=== PATIENT | female | born 1970 | race Caucasian/White ===

== ENCOUNTER 2017-01-01 00:32 | Inpatient (IN) | payer OTHER ==
[~2017-01-01] VITALS: Ht 157.5 cm; Wt 78.8 kg
[~2017-01-01 00:32] MED LIST: BAC30OI TOP
[2017-01-01 01:41] VITALS: Ht 157.5 cm; Wt 78.8 kg
[2017-01-01] MEDS ORDERED: ONDANSETRON 4 MG INJ IV PRN (02:00)
[2017-01-01] MEDS ORDERED: ACETAMINOPHEN 325 MG TAB PO PRN (02:00)
[2017-01-01] MEDS ORDERED: morphine 2 MG INJ IV PRN (02:00)
[2017-01-01 02:06] VITALS: BP 153/89; PULSE 81; RESP 20
[2017-01-01 02:40] LABS: HEMATOCRIT 26.2 % (37.0-47.0); HEMOGLOBIN 7.9 g/dl (12.0-16.0)
[2017-01-01 02:50] LABS: IRON 12 ug/dl (35-150)
[2017-01-01 02:59] LABS: TOTAL IRON BINDING CAPACITY 369 ug/dl (241-421)
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
[2017-01-01 08:14] VITALS: BP 128/82; RESP 16
[2017-01-01] MEDS ORDERED: SOD FERRIC GLUC COMPLX 125 MG in SOD CHLORIDE 0.9% 100 ML IVPB ONE (10:30)
--- NOTE | 2017-01-01 10:49 | RADRPT ---
PROCEDURE: US Pelvis. CLINICAL INDICATION: Vaginal bleeding TECHNIQUE: Multiple sonographic images of the pelvis were obtained utilizing a transabdominal and endovaginal technique. The images were reviewed on a PACS workstation. COMPARISON: None. FINDINGS: The uterus is visualized and measures 9.8 x 6.3 x 7.1 cm. The endometrial echo complex measures 4 mm thickness. 2.7 cm subserosal fibroid is identified in the posterior body of the uterus. A 6.5 cm i ntramural uterine fibroid is identified in the uterus. The right ovary is not well visualized. The left ovary measures 3.6 x 1.9 x 2.2 cm. 1.9 cm simple cyst is identified on the left ovary. The left ovary demonstrates normal vascularity.. No adnexal masses or pelvic free fluid are noted. IMPRESSION: Multifibroid uterus. 1.9 cm simple cyst on the left ovary. This likely reflects a prominent follicle or physiologic cyst . Right ovary not well visualized. If characterization of this structure is needed repeat exam or CT/M RI is recommended. If further characterization of the organs of the pelvis is needed MRI should be considered. RPTAT: AA .Andre Lindsay MD, Date Time Electronically viewed and signed by .Andre Lindsay MD, MD on 01/01/2017 10:49 .P/
--- NOTE | 2017-01-01 14:52 | CONS ---
Date/Time of Note Date/Time of Note DATE: 01/01/17 TIME: 14:32 Assessment/Plan Assessment/Plan Chief Complaint/Hosp Course 1) Abnormal Uterine Bleeding 2) Likely IUD Expulsion 3) Vaginal Bleeding Problems: Additional Assessment/Plan 1) Abnormal Uterine Bleeding -Bleeding may be secondary to 6.5cm intramural fibroid for which she may need surgical intervention given recurrent episodes of symptomatic anemia requiring transfusion. Pt will also need an endometrial biospy to assess for endometrial hyperplasia or CA given her age and long hx of AUB. In the meantime, discussed with pt hormonal options, other than the LNG IUD, for managing bleeding including combined oral contraceptives and other forms of progestin contraception including Depo Provera, progestin only pill and progestin implant. Pt is a poor candidate for combined hormonal methods secondary to active tobacco use and her age. Would recommend either progestin only pill or more preferably hormonal implant given pt difficulty with compliance- remembering to take and dislike for pills- and concern for weight gain with DMPA. Pt will need to establish an outpatient GREASE RACK WORKER to further discuss options and for further workup and management of fibroids and bleeding. 2) Likely IUD expulsion- Called Radiology to confirm absence of IUD and was told that an IUD was not visualized. Recommended pt use other form of contraception given the high likelihood that the IUD has been expelled. Urine test ordered. 3) Vaginal Discharge- Vaginal culture collected and sent. STI panel ordered and results will be followed up by GREASE RACK WORKER. Plan d/w pt. Questions answered to her satisfaction. Thank you for this consult. Consultation Date/Type/Reason Admit Date/Time Jan 01, 2017 at 01:25 Date of Consultation: Jan 01, 2017 Type of Consultation: Gynecology Reason for Consultation IUD and vaginal pus after menses Referring Provider: ANSON ROSALES Hx of Present Illness Pt is a 46yo with a reported long history of heavy menses since 2nd delivery in 1995, now admitted for symptomatic anemia s/p menses on 12/22/16. Pt states she has had two Mirena IUDs over the years for contraception and for management of heavy bleeding which have not decreased menstrual flow much. Pt reports heavy bleeding with clots. Denies dysmenorrhea although after this last menses she c/o cramping in lower abdomen which has now resolved although c/o a soreness in lower abdomen now. Pt also c/o seeing a pus -like discharge after menses. Denies irregular bleeding or vaginal itching. Reports a foul odor with the discharge. Pt states her IUD was inserted in 2009 and [place] and had insurance issues and thus has not been able to have it removed. She was checking for the strings regularly up until about a year ago and had always felt them during her vaginal checks. PMHx: HTN, not on meds; Anemia s/p transfusions 4x in last 12 years PSHx: Multiple non GREASE RACK WORKER/Abdominal surgeries OB Hx: x5, SAB x3, TAB x1 GREASE RACK WORKER Hx: Single, last sexually active 2mths ago with global transportation manager male partner x2 years. Recently found out he was unfaithful. Denies condom use. Remote hx of CT in her 20s. Otherwise denies STI hx. Soc Hx: 20+ yr Meth use, last use 1yr ago. Denies current illicit drug or EtOH use. Smokes 1-2 cigs/week (although per Admission H&P, pt reported 7cigs/day). Past Medical History Medical History: hypertension, other (anemia) Past Surgical History Past Surgical Hx: other (as per above) Family History Significant Family History: no pertinent family hx Social History Alcohol Use: none Smoking Status: Current every day smoker Drug Use: none Other Social History as per above Exam/Review of Systems Vital Signs Vitals Vital Signs Date Time Temp Pulse Resp B/P Pulse Ox O2 Delivery O2 Flow Rate FiO2 01/01/17 08:14 98.1 80 16 128/82 97 01/01/17 02:06 Room Air Exam Constitutional: alert, oriented, No distress Respiratory: clear to auscultation Cardiovascular: regular rate and rhythm Gastrointestinal: bowel sounds, soft, tender (min TTP lower quadrants diffusely , distractable), No distended, No firm, No mass, No rebound or guarding Genitourinary - Female: nl adnexae, nl external genitalia, other (on SSE, parous cervix, no strings visualized per cervical os. Approx 1tbsp of mucous with yellow tinge. No malodor), uterus (nontender), No CMT Results Result Diagram: 01/01/17 0220 Results 24 hrs Laboratory Tests Test 01/01/17 02:20 Ferritin 4.2 L Hematocrit 26.2 L Hemoglobin 7.9 L Iron Level 12 L Percent Iron Saturation 3 L Total Iron Binding Capacity 369 Medications Medications Current Medications Acetaminophen (Tylenol Tab) 650 mg Q6H PRN PO PAIN AND OR ELEVATED TEMP; Start 01/01/17 at 02:00 Morphine Sulfate (morphine) 2 mg Q4H PRN IV PAIN; Start 01/01/17 at 02:00 Ondansetron HCl (Zofran Inj) 4 mg Q6H PRN IV NAUSEA AND/OR VOMITING; Start at 02:00 JORDAN MORRISON MD Jan 01, 2017 14:42
[2017-01-01 18:43] LABS: HAAIG REFLEX REFLEX FILED
[2017-01-01 18:48] LABS: HEMATOCRIT 30.9 % (37.0-47.0); HEMOGLOBIN 9.6 g/dl (12.0-16.0); MEAN CORPUSCULAR HEMOGLOBIN 20.7 pg (29.0-33.0); MEAN CORPUSCULAR HGB CONC 31.2 g/dl (32.0-37.0); MEAN CORPUSCULAR VOLUME 66.2 fl (82.0-101.0); MEAN PLATELET VOLUME 8.2 fl (7.4-10.4); PLATELET COUNT 415 10^3/UL (140-440); RED BLOOD COUNT 4.66 10^6/ul (4.20-5.40); RED CELL DISTRIBUTION WIDTH 24.2 % (11.5-14.5); UNCORRECTED WBC 5.2 10^3/ul (4.8-10.8); WHITE BLOOD COUNT 5.2 10^3/ul (4.8-10.8)
[2017-01-01 19:04] LABS: CALCIUM 8.6 mg/dl (8.4-10.2); CREATININE 0.68 mg/dl (0.44-1.00)
[2017-01-01 19:05] LABS: CONDITION 1; LH ANALYZER COMMENTS 1
[2017-01-01 19:44] VITALS: BP 144/85; PULSE 84; RESP 20
[2017-01-01 20:11] LABS: HEPATITIS B CORE ANTIBODY NEGATIVE (NEGATIVE)
[2017-01-01 20:29] VITALS: BP 122/78; RESP 16
[2017-01-01 21:53] LABS: EOSINOPHILS # 0.1 10^3/ul (0.0-0.5); LYMPHOCYTES # 1.3 10^3/ul (0.8-2.9); MONOCYTE # 0.3 10^3/ul (0.3-0.9); NEUTROPHIL # 3.5 10^3/ul (1.6-7.5)
[2017-01-01 21:54] LABS: OVALOCYTES 1+
[2017-01-02 08:00] VITALS: BP 136/75; PULSE 78; RESP 20
--- NOTE | 2017-01-02 14:52 | QN ---
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 heavy periods, uterine fibroids and severe anemia, now s/o 2 units blood transfused and feeling much better. Pt does not have any bleeding currently. A report of a Mirena IUD in place could not be verifies as the string is not seen at the cervix and on pelvic US it could not be seen so the presumption is that it was expelled. Pt states her periods never really got prop cutter at any time with the IUD. Hgb today is 9.6. RPR, HIV and Hepatitis B and C are negative (done per pt request). Vaginal cx showing Group B strep done as pt c/o a vaginal d/c. Pt ready for discharge home. Rx given for p.o. Keflex 500 QID x 7 days along with a Rx for Diflucan 150 mg p.o. x 1. Reviewed at length the different options pt has to prevent a recurrence of the heavy bleeding and strongly recommend she see her WRAPPER LAYER AND EXAMINER SOFT WORK to create a plan of care. Recommend DepoProvera or OCP's for now and to consider a myomectomy or hysterectomy if the hormonal controls don't work. Pt indicated understanding. KEVON MENA MD Jan 02, 2017 14:52
--- NOTE | 2017-01-02 16:16 | PDOCDIS ---
Discharge Instructions CONDITION Patient Condition: Good HOME CARE INSTRUCTIONS: Diet Instructions: Regular ACTIVITY: Activity Restrictions: No Restrictions FOLLOW UP/APPOINTMENTS Appointments F/U WITH YOUR PCP AND YOUR WATCH MANUFACTURING SUPERVISOR IN 1-2 WEEKS ANSON ROSALES Jan 02, 2017 16:16
--- NOTE | 2017-01-03 07:25 | DS ---
DATE OF ADMISSION: 01/01/2017 DATE OF DISCHARGE: 01/02/2017 DISCHARGE DIAGNOSES: 1. Anemia secondary to menorrhagia status post 2 units of packed red blood cells. Hemoglobin now s table. The patient is having no active bleeding at this time. She has been evaluated by gynecology . Recommendation is to follow up with computer programming manager as outpatient. The patient does have fibroids n oted on ultrasound. 2. History of substance abuse. The patient has reported history of meth abuse. Recommended to sto p. 3. History of hypertension. BP now stable off medications. HOSPITAL COURSE: The patient is a 46-year-old female with history of hypertension, off medication f or 8 months. The patient has a history of meth abuse and heavy menses with multiple blood transfusi ons in the past. She reportedly had an IUD placed in 2009 that was supposed to be removed by now an d states that he never got it removed. The patient's hemoglobin is 7.9. She was given 2 units of p acked red blood cells during this hospitalization. She was seen by STORE RECEIVER and did have a pelvic ultras ound. The pelvic ultrasound showed a multifibroid uterus, a 1.9 cm stable cyst on left ovary. The patient had no IUD noted, and it appeared that IUD had expelled on its own. The patient's RPR, HIV, and hepatitis B and C were negative. Vaginal cultures showed group B strep. Gynecology advised th at she follows up with STORE RECEIVER as an outpatient to create a plan of care. Recommendation was for Depo-P rovera or OCPs for now and to consider a myomectomy or hysterectomy if hormonal control did not work . The patient was cleared for discharge to home by STORE RECEIVER. She was having no active bleeding. The da y of discharge, the patient's vitals, labs, and physical exam were stable. No acute complaints. Al l questions were answered. CONDITION ON DISCHARGE: Stable. DISPOSITION: To home. MEDICATIONS: The patient was given a prescription for Keflex 500 mg p.o. q.i.d. for 7 days and Difl ucan 150 mg p.o. x1. This was given by computer programming manager. The patient was to continue her home bacitrac in. FOLLOWUP: The patient is to follow up with PCP and computer programming manager in 1 to 2 weeks. Greater than 30 minutes was spent coordinating discharge of patient. Dictated By: ANSON HOUGH/NTS Conf#: [id number] DID#: [id number]
== END 2017-01-02 18:35 | disposition home or self-care (01) | DRG 812 ==
LOC: MS2 01:25
PROVIDERS: ADMIT Internal Medicine; ATTEND Internal Medicine
PROC: 30233N1 Transfusion of Nonautologous Red Blood Cells into Peripheral Vein, Percutaneous Approach (ICD-10-PCS; principal; 2017-01-01)
DX: D64.9 Anemia, unspecified (principal); I10 Essential (primary) hypertension; N92.0 Excessive and frequent menstruation with regular cycle; D25.9 Leiomyoma of uterus, unspecified
CPT/HCPCS: 36430; 76830; 76856; 80048; 82728; 83540; 84703; 85014; 85018; 85025; 86592; 86703; 86704; 86709; 86803; 86850; 86900; 86901; 86920; 87081; 87340; 87591; J2916; P9016

== ENCOUNTER 2018-07-06 13:02 | Emergency (ER) | END 2018-07-06 14:25 | disposition home or self-care (01) ==

== ENCOUNTER 2018-07-15 19:24 | Inpatient (IN) | END 2018-07-18 13:30 | disposition home or self-care (01) | DRG 743 ==

== ENCOUNTER 2018-08-12 11:31 | Emergency (ER) | END 2018-08-12 12:45 | disposition home or self-care (01) ==

== ENCOUNTER 2018-09-12 19:35 | Emergency (ER) | END 2018-09-13 00:14 | disposition left against medical advice (07) ==

== ENCOUNTER 2019-03-27 20:41 | Emergency (ER) | payer OTHER ==
[~2019-03-27] VITALS: Ht 157.5 cm; Wt 78.3 kg
[~2019-03-27 20:41] MED LIST changes: -BAC30OI TOP; +FER325 PO; +HYDR-3601 PO; +IBUP-1542 PO
[2019-03-27 21:19] VITALS: Ht 157.5 cm; Wt 78.3 kg
[2019-03-27] MEDS ORDERED: ONDANSETRON 4 MG INJ IV STA (23:39)
[2019-03-27] MEDS ORDERED: SOD CHLORIDE 0.9% 1,000 ML IV STA (23:39)
[2019-03-27] MEDS ORDERED: morphine 4 MG/ML VIAL IV STA (23:39)
[2019-03-28] MEDS ORDERED: METR500T PO (01:54)
[2019-03-28] MEDS ORDERED: TRAM50TA2 PO (01:54)
[2019-03-28] MEDS ORDERED: CIPR500T4 PO (01:54)
--- NOTE | 2019-03-28 01:55 | ERD ---
ER Documentation Chief Complaint Chief Complaint abdominal pain x 4 days HPI Is a 40-year-old female with abdominal pain for the past 4 days. She is also mildly constipated. Denies fevers chills. Pain is in lower quadrants. No re bound no guarding. Denies any vomiting but has had mild nausea. Denies any other current complaints. ROS All systems reviewed and are negative except as per history of present illness. Medications Home Meds Active Scripts Tramadol HCl (Tramadol HCl) 50 Mg Tablet, 50 MG PO Q4 PRN for PAIN, #20 TAB Prov:MAR GATES S. 03/28/19 Metronidazole* (Flagyl*) 500 Mg Tablet, 500 MG PO TID for 5 Days, TAB Prov:MAR GATES S. 03/28/19 Ciprofloxacin Hcl* (Ciprofloxacin Hcl*) 500 Mg Tablet, 500 MG PO BID for 5 Days, TAB Prov:MAR GATES. 03/28/19 Ibuprofen* (Motrin*) 600 Mg Tab, 600 MG PO Q6, #20 TAB Prov:DEEPAK CALLEJAS MD 08/12/18 Hydrocodone Bit-Acetaminophen (Hydrocodone Bit-APAP) 5-325MG Tablet, 1 TAB PO Q4H PRN for pain for 7 Days, #20 TAB Prov:NOAH CABRERA MD 07/18/18 Reported Medications Ferrous Sulfate* (Ferrous Sulfate*) 325 Mg Tabec, 325 MG PO DAILY, TAB 07/15/18 Allergies Allergies: Coded Allergies: No Known Allergy (Verified , 07/15/18) PMhx/Soc History of Surgery: Yes (Right leg Sx) Anesthesia Reaction: No Hx Neurological Disorder: No Hx Respiratory Disorders: No Hx Cardiac Disorders: No (HTN) Hx Psychiatric Problems: No Hx Miscellaneous Medical Probl: No Hx Alcohol Use: No Hx Substance Use: Yes (crystal meth four years ago) Hx Tobacco Use: No Smoking Status: Never smoker Physical Exam Vitals Vital Signs Date Temp Pulse Resp B/P (MAP) Pulse Ox O2 O2 Flow FiO2 Time Delivery Rate 03/27/19 99.7 102 20 139/98 98 21:19 (112) Physical Exam Const: No acute distress Head: Atraumatic Eyes: Normal Conjunctiva ENT: Normal External Ears, Nose and Mouth. Neck: Full range of motion. No meningismus. Resp: Clear to auscultation bilaterally Cardio: Regular rate and rhythm, no murmurs Abd: Soft, non tender, non distended. Normal bowel sounds Skin: No petechiae or rashes Back: No midline or flank tenderness Ext: No cyanosis, or edema Neur: Awake and alert Psych: Normal Mood and Affect Result Diagram: 03/28/19 0010 03/28/19 001 Results 24 hrs Laboratory Tests Test 03/28/19 00:10 03/28/19 00:23 White Blood Count 4.9 10^3/ul Red Blood Count 5.01 10^6/ul Hemoglobin 14.1 g/dl Hematocrit 43.8 % Mean Corpuscular Volume 87.4 fl Mean Corpuscular Hemoglobin 28.1 pg Mean Corpuscular Hemoglobin Concent 32.2 g/dl Red Cell Distribution Width 15.3 % Platelet Count 318 10^3/UL Mean Platelet Volume 11.1 fl Immature Granulocytes % 0.200 % Neutrophils % 54.9 % Lymphocytes % 35.9 % Monocytes % 6.8 % Eosinophils % 2.0 % Basophils % 0.2 % Nucleated Red Blood Cells % 0.0 /100WBC Immature Granulocytes # 0.010 10^3/ul Neutrophils # 2.7 10^3/ul Lymphocytes # 1.8 10^3/ul Monocytes # 0.3 10^3/ul Eosinophils # 0.1 10^3/ul Basophils # 0.0 10^3/ul Nucleated Red Blood Cells # 0.0 10^3/ul Urine Color YELLOW Urine Clarity SLIGHTLY CLOUDY Urine pH 5.0 Urine Specific [place] 1.024 Urine Ketones NEGATIVE mg/dL Urine Nitrite NEGATIVE mg/dL Urine Bilirubin NEGATIVE mg/dL Urine Urobilinogen 1+ mg/dL Urine Leukocyte Esterase TRACE Sima/ul Urine Microscopic RBC 2 /HPF Urine Microscopic WBC 3 /HPF Urine Squamous Epithelial Cells FEW /HPF Urine Bacteria FEW /HPF Urine Mucus MANY /HPF Urine Hemoglobin 1+ mg/dL Urine Glucose NEGATIVE mg/dL Urine Total Protein NEGATIVE mg/dl Sodium Level 144 mmol/L Potassium Level 3.7 mmol/L Chloride Level 111 mmol/L Carbon Dioxide Level 22 mmol/L Anion Gap 11 Blood Urea Nitrogen 12 mg/dl Creatinine 0.74 mg/dl Est Glomerular Filtrat Rate mL/min > 60 mL/min Glucose Level 101 mg/dl Calcium Level 9.6 mg/dl Total Bilirubin 0.2 mg/dl Direct Bilirubin 0.00 mg/dl Indirect Bilirubin 0.2 mg/dl Aspartate Amino Transf (AST/SGOT) 24 IU/L Alanine Aminotransferase (ALT/SGPT) 18 IU/L Alkaline Phosphatase 99 IU/L Total Protein 8.0 g/dl Albumin 4.3 g/dl Globulin 3.70 g/dl Albumin/Globulin Ratio 1.16 Lipase 119 U/L POC Beta HCG, Qualitative NEGATIVE Current Medications Medications Dose Sig/Иван Start Time Status Last (Trade) Ordered Route PRN Stop Time Admin Dose Reason Admin Sodium 1,000 ml @ Q1H STAT 03/27/19 DC 03/27/19 Chloride 1,000 mls/hr IV 23:39 23:39 03/28/19 00:38 Morphine 4 mg ONCE STAT 03/27/19 DC 03/27/19 Sulfate IV 23:39 00:42 (morphine) 03/27/19 23:40 Ondansetron 4 mg ONCE STAT 03/27/19 DC 03/27/19 HCl (Zofran IV 23:39 00:42 Inj) 03/27/19 23:40 Procedures/MDM Medical decision making: Patient's gastrointestinal symptoms have stabilized while in the department. No evidence of severe dehydration, sepsis, or surgical abdomen. Extensive discussion with family and patient that occult disease cannot be ruled out. 8 hour recheck for repeat abdominal exam is planned. Patient discharged home with Cipro, Flagyl, tramadol. Advised follow-up in 8 hours. She does have some evidence of mild diverticulitis. Given this that she is concerned as outpatient antibiotic regimen. She is to return in 8 hours and for serial abdominal exams Departure Diagnosis: Primary Impression: Abdominal pain Abdominal location: unspecified location Qualified Codes: R10.9 - Unspecified abdominal pain Condition: Stable Patient Instructions: Diverticulitis MAR GATES March 28, 2019 01:55
[2019-03-28 02:26] VITALS: BP 152/78; PULSE 82; RESP 16
== END 2019-03-28 02:30 | disposition home or self-care (01) ==
LOC: E/R 20:41
DX: R10.9 Unspecified abdominal pain (principal)
CPT/HCPCS: 36415; 71045; 74176; 80053; 81001; 81025; 83690; 85025; 96374; 96375; J2270; J2405; J7030; Z7502

== ENCOUNTER 2019-06-30 12:44 | Emergency (ER) | payer OTHER ==
[~2019-06-30] VITALS: Ht 154.9 cm; Wt 81.6 kg
[~2019-06-30 12:44] MED LIST changes: +CIPR500T4 PO; +MECL12.574 PO; +METR500T PO; +TRAM50TA2 PO
[2019-06-30 12:51] VITALS: BP 164/94; PULSE 77; RESP 17; Ht 154.9 cm; Wt 81.6 kg
[2019-06-30] MEDS ORDERED: MECLIZINE 12.5 MG TAB PO ONE (14:00)
--- NOTE | 2019-06-30 16:22 | ERD ---
ER Documentation Chief Complaint Chief Complaint DIZZINESS X2 HRS, NO N, NO HEADACHE HPI This is a 48-year-old female with history of anemia and meth abuse, currently sober and in remission who presents to the ED with complaints of dizziness x 2 hours. Patient states she was sitting in class when she had sudden onset dizziness, described as a room spinning. She states the symptoms are provoked when turning her head to the right. Symptoms last for a few and then spontaneously resolved. She denies any associated nausea, vomiting, headache, chest pain, shortness of breath. No ear pain or trauma. She also reports feeling tired. No other complaints. ROS All systems reviewed and are negative except as per history of present illness. Medications Home Meds Active Scripts Meclizine Hcl* (Antivert*) 12.5 Mg Tab, 12.5 MG PO Q6H PRN for DIZZINESS, #20 TAB Prov:SANGEETHA STEVE PA-C 06/30/19 Tramadol HCl (Tramadol HCl) 50 Mg Tablet, 50 MG PO Q4 PRN for PAIN, #20 TAB Prov:MAR GATES S. 03/28/19 Metronidazole* (Flagyl*) 500 Mg Tablet, 500 MG PO TID for 5 Days, TAB Prov:MAR GATES S. 03/28/19 Ciprofloxacin Hcl* (Ciprofloxacin Hcl*) 500 Mg Tablet, 500 MG PO BID for 5 Days, TAB Prov:MAR GATES S. 03/28/19 Ibuprofen* (Motrin*) 600 Mg Tab, 600 MG PO Q6, #20 TAB Prov:DEEPAK CALLEJAS MD 08/12/18 Hydrocodone Bit-Acetaminophen (Hydrocodone Bit-APAP) 5-325MG Tablet, 1 TAB PO Q4H PRN for pain for 7 Days, #20 TAB Prov:NOAH CABRERA MD 07/18/18 Reported Medications Ferrous Sulfate* (Ferrous Sulfate*) 325 Mg Tabec, 325 MG PO DAILY, TAB 07/15/18 Allergies Allergies: Coded Allergies: No Known Allergy (Verified , 06/30/19) PMhx/Soc History of Surgery: Yes (Right leg Sx) Anesthesia Reaction: No Hx Neurological Disorder: No Hx Respiratory Disorders: No Hx Cardiac Disorders: No (HTN) Hx Psychiatric Problems: No Hx Miscellaneous Medical Probl: No Hx Alcohol Use: No Hx Substance Use: Yes (crystal meth four years ago) Hx Tobacco Use: No Smoking Status: Never smoker Physical Exam Vitals Vital Signs Date Temp Pulse Resp B/P (MAP) Pulse Ox O2 O2 Flow FiO2 Time Delivery Rate 06/30/19 99.0 77 17 164/94 98 12:51 (117) Physical Exam Const: No acute distress Head: Atraumatic Eyes: Normal Conjunctiva. EOMI. PERRL. + Fatigable horizontal nystagmus to the left. ENT: Normal External Ears, Nose and Mouth. Neck: Full range of motion. No meningismus. + Dizziness is provoked when turning head to the right. Resp: Clear to auscultation bilaterally Cardio: Regular rate and rhythm, no murmurs Abd: Soft, non tender, non distended. Normal bowel sounds Skin: No petechiae or rashes Back: No midline or flank tenderness Ext: No cyanosis, or edema Neur: Awake and alert Psych: Normal Mood and Affect Result Diagram: 06/30/19 1412 06/30/19 1412 Results 24 hrs Laboratory Tests Test 06/30/19 14:12 White Blood Count 6.3 10^3/ul Red Blood Count 4.70 10^6/ul Hemoglobin 13.7 g/dl Hematocrit 42.7 % Mean Corpuscular Volume 90.9 fl Mean Corpuscular Hemoglobin 29.1 pg Mean Corpuscular Hemoglobin Concent 32.1 g/dl Red Cell Distribution Width 14.4 % Platelet Count 282 10^3/UL Mean Platelet Volume 11.3 fl Immature Granulocytes % 0.200 % Neutrophils % 62.7 % Lymphocytes % 26.7 % Monocytes % 8.4 % Eosinophils % 1.7 % Basophils % 0.3 % Nucleated Red Blood Cells % 0.0 /100WBC Immature Granulocytes # 0.010 10^3/ul Neutrophils # 4.0 10^3/ul Lymphocytes # 1.7 10^3/ul Monocytes # 0.5 10^3/ul Eosinophils # 0.1 10^3/ul Basophils # 0.0 10^3/ul Nucleated Red Blood Cells # 0.0 10^3/ul Sodium Level 140 mmol/L Potassium Level 3.6 mmol/L Chloride Level 105 mmol/L Carbon Dioxide Level 26 mmol/L Anion Gap 9 Blood Urea Nitrogen 13 mg/dl Creatinine 0.61 mg/dl Est Glomerular Filtrat Rate mL/min > 60 mL/min Glucose Level 99 mg/dl Calcium Level 9.5 mg/dl Current Medications Medications Dose Sig/Иван Start Time Status Last (Trade) Ordered Route PRN Stop Time Admin Dose Reason Admin Meclizine 25 mg ONCE ONCE 06/30/19 DC 06/30/19 HCl PO 14:00 14:02 (Antivert) 06/30/19 14:01 Procedures/MDM LABS & DIAGNOSTIC IMAGING: CBC: no e/o of systemic infection or severe anemia BMP: no e/o severe acidosis, alkalosis, renal failure, diabetic ketoacidosis PROCEDURES: 12-lead EKG interpretation as interpreted by Dr. Dotson Normal Sinus Rhythm with ventricular rate of 73 beats per minute Normal axis Normal intervals No acute ST or T wave changes suggestive of acute ischemia or STEMI. ED COURSE: The patient was given p.o. meclizine The medication was well tolerated and the patient had market improvement in symptoms. The patient remained stable throughout ED course. MEDICAL DECISION MAKING: This is a 48-year-old female with history of anemia presents with dizziness. Patient symptoms are consistent with vertigo. She has no evidence of anemia, dehydration or infection. Patient symptoms are consistent with peripheral vertigo. She has no focal neurological deficit on physical exam. Patient does not need CT head or advanced imaging at this time. Patient will be discharged home with meclizine. Recommended PCP follow up in 1 week. Strict return precautions were discussed. PRESCRIPTIONS: Meclizine SPECIALIST FOLLOW UP RECOMMENDED: None Departure Diagnosis: Primary Impression: Vertigo Condition: Stable Patient Instructions: Inner Ear Problems: Causes of Dizziness (Vertigo) Additional Instructions: Call your primary care doctor TOMORROW for an appointment during the next 2-4 days and bring all the information and medications prescribed. If the symptoms get worse and your provider is unavailable, return to the Emergency Department immediately. SNAGEETHA STEVE PA-C Jun 30, 2019 16:22
== END 2019-06-30 15:18 | disposition home or self-care (01) ==
LOC: FTE 12:44
DX: I10 Essential (primary) hypertension (principal)
CPT/HCPCS: 80048; 85025; Z7610; 36415; 93005